=== PATIENT | male | born 1995 | race Caucasian/White ===

== ENCOUNTER 2017-09-08 13:23 | Emergency (ER) | payer BC ==
[~2017-09-08] VITALS: Ht 185.4 cm; Wt 74.8 kg
[2017-09-08 15:01] VITALS: BP 122/84
== END 2017-09-08 15:01 | disposition home or self-care (01) ==
LOC: ED 13:23
DX: S61.211A Laceration without foreign body of left index finger without damage to nail, initial encounter (principal); W45.8XXA Other foreign body or object entering through skin, initial encounter; Y93.89 Activity, other specified; Y92.89 Other specified places as the place of occurrence of the external cause; Y99.8 Other external cause status
CPT/HCPCS: J2001